=== PATIENT | female | born 1985 | race Caucasian/White ===

== ENCOUNTER 2016-11-25 21:35 | Inpatient (IN) | payer BC ==
[~2016-11-25] VITALS: Ht 162.6 cm; Wt 82.2 kg
[~2016-11-25 21:35] MED LIST: ENDOCET 5-3251 EACH PO; IBUPROFEN800 MG PO; KPN1 EACH PO; PRENATAL TABLE1 EAC3 PO
[2016-11-25 21:50] VITALS: BP 137/87
[2016-11-25 21:52] VITALS: BP 137/87
[2016-11-26] VITALS (13 sets, daily range): BP systolic 102–148; BP diastolic 62–87
[2016-11-26 00:53] LABS: EOSINOPHIL (%) 0.6 % (0-5); EOSINOPHIL COUNT 0.1 K/uL (0-0.3); HEMATOCRIT 35.8 % (36.0-46.0); IMMATURE GRANULOCYTE (%) 0.5 % (0.0-0.7); INSTRUMENT ABS NEUTROPHIL CT 5.6 K/uL; MCH 29.3 PG (29.0-34.0); MCHC 32.4 G/DL (30.0-36.0); MCV 90.4 FL (83-99); MEAN PLAT.VOLUME 12.4 uM^3 (9.5-12.4); MONOCYTE (%) 7.4 % (3-12); MONOCYTE COUNT 0.6 K/uL (0-0.8); NEUTROPHIL (%) 67.5 % (45-76); NEUTROPHIL COUNT 5.6 K/uL (1.8-6.4); PLATELET COUNT 128 K/uL (156-360); RBC DIS.WIDTH-CV 12.8 % (11.8-14.6); RBC DIS.WIDTH-SD 41.9 % (39-53); RED BLOOD COUNT 3.96 M/uL (3.80-5.20); WHITE BLOOD COUNT 8.4 K/uL (4.1-10.2)
[2016-11-26] MEDS ORDERED: PRENATAL TABLE1 EACH PO (01:37)
[2016-11-26] MEDS ORDERED: MOTRIN800 MG PO (02:02)
[2016-11-27 07:24] VITALS: BP 115/71
[2016-11-27 15:05] VITALS: BP 126/82
[2016-11-27 22:49] VITALS: BP 127/74
[2016-11-28 06:45] VITALS: BP 119/77
[2016-11-28 14:25] VITALS: BP 122/82
== END 2016-11-28 15:19 | disposition home or self-care (01) | DRG 775 ==
LOC: LDRP-OP 21:35 → 2WEST 21:40
PROVIDERS: Nurse Practitioner
DX: O70.0 First degree perineal laceration during delivery (principal); O62.3 Precipitate labor; O48.0 Post-term pregnancy; O69.81X0 Labor and delivery complicated by cord around neck, without compression, not applicable or unspecified; O99.824 Streptococcus B carrier state complicating childbirth; Z3A.40 40 weeks gestation of pregnancy; Z37.0 Single live birth
CPT/HCPCS: 83030; 85025; 86850; 86900; 86901; G0378; J2790